=== PATIENT | female | born 1960 | race Caucasian/White ===

== ENCOUNTER 2016-08-12 15:25 | Emergency (ER) | payer MEDICARE, MEDICAID ==
[~2016-08-12 15:25] MED LIST: AXERT12.5 MG; BENADRYL50 MG PO; CATAPRES0.1 MG PO; CIPRO500 MG PO; DETROL LA4 MG PO; ESTRACE1 M1 PO; ESTRACE2 MG PO; ESTRATEST; FOLIC ACID1 MG PO; HYDROCHLOROTHIA25 MG PO; HYDROXYZINE PO; KEFLEX500 MG PO; KLOR-CON M2020 MEQ PO; LASIX20 MG PO; LATUDA40 MG PO; LATUDA80 MG PO; LEVOTHROID50 MCG PO; LITHIUM CARBON450 MG PO; NEURONTIN300 MG PO; OXYCONTIN80 MG; PEN-VEE K500 MG PO; PROZAC40 MG PO; PYRIDIUM100 MG PO; SEROQUEL XR300 MG PO; SYNTHROID100 MCG PO; SYNTHROID75 MCG; SYNTHROID88 MCG PO; ULTRAM ER100 MG PO; ULTRAM ER300 MG; ULTRAM50 MG PO; VALIUM10 MG; XANAX1 MG PO; XANAX2 MG PO
[2016-08-12] MEDS ORDERED: FOLIC ACID1 M1 PO (15:53)
[2016-08-12] MEDS ORDERED: ESTRACE1 M3 PO (15:53)
[2016-08-12] MEDS ORDERED: SYNTHROID (15:54)
[2016-08-12] MEDS ORDERED: SYNTHROID100 MC1 PO (15:55)
[2016-08-12] MEDS ORDERED: LATUDA20 M1 PO (15:56)
[2016-08-12] MEDS ORDERED: HYDROXYZINE HCL50 M1 PO (15:59)
[2016-08-12] MEDS ORDERED: LASIX20 M1 PO (16:00)
[2016-08-12] MEDS ORDERED: KEPPRA500 M3 PO (16:00)
[2016-08-12] MEDS ORDERED: NEURONTIN600 M1 PO (16:01)
[2016-08-12] MEDS ORDERED: NEURONTIN300 M1 PO (16:02)
[2016-08-12] MEDS ORDERED: POTASSIUM CHLO20 ME3 PO (16:02)
[2016-08-12] MEDS ORDERED: NORCO 7.5-3251 EACH PO (17:11)
== END 2016-08-12 17:19 ==
LOC: EDMED 15:25
DX: M25.561 Pain in right knee (principal); D56.1 Beta thalassemia; Z79.899 Other long term (current) drug therapy; F17.210 Nicotine dependence, cigarettes, uncomplicated

== ENCOUNTER 2016-08-14 14:19 | Emergency (ER) | payer MEDICARE, MEDICAID ==
[~2016-08-14 14:19] MED LIST changes: +ESTRACE1 M3 PO; +FOLIC ACID1 M1 PO; +HYDROXYZINE HCL50 M1 PO; +KEPPRA500 M3 PO; +LASIX20 M1 PO; +LATUDA20 M1 PO; +NEURONTIN300 M1 PO; +NEURONTIN600 M1 PO; +NORCO 7.5-3251 EACH PO; +POTASSIUM CHLO20 ME3 PO; +SYNTHROID; +SYNTHROID100 MC1 PO
[2016-08-14] MEDS ORDERED: HYDROCODON-ACE1 EA16 PO (14:51)
[2016-08-14] MEDS ORDERED: NORCO 7.5-3251 EACH PO (15:14)
== END 2016-08-14 16:02 ==
LOC: EDMED 14:19
DX: M25.561 Pain in right knee (principal); G89.29 Other chronic pain